=== PATIENT | female | born 2000 | race Caucasian/White ===

== ENCOUNTER 2021-06-18 17:33 | Observation (INO) | payer OTHER ==
[2021-06-18 18:03] LABS: #Eosinphils 0.2 10x3/uL (0.0-0.5); #Monocytes 0.5 10x3/uL (0.0-1.1); #Neutrophils 5.1 10x3/uL (1.5-8.4); %Basophils 0.3 % (0.0-2.0); %Eosinophils 2.3 % (0.0-6.0); %Lymphocytes 32.8 % (18.0-47.0); %Monocytes 6.2 % (0.0-10.0); %Neutrophils 58.2 % (40.0-75.0); Hemoglobin 13.4 g/dL (12.0-15.5); Mean Corpuscular HGB CONC 33.4 g/dL (32.0-36.0); Mean Corpuscular Hemoglobin 31.8 pg (27.0-33.0); Mean Corpuscular Volume 95.2 fl (81.6-98.3); Mean Platelet Volume 9.3 fl (7.4-10.4); Platelet Count 360 10x3/uL (150-450); RBC Distribution Width 13.2 % (11.5-14.5); Red Blood Cell (RBC) Count 4.21 10x6/uL (3.90-5.03); White Blood Cell (WBC) Count 8.7 10x3/uL (3.5-10.5)
[2021-06-18] MEDS ORDERED: Fentanyl 100 MCG/2 ML VIAL ONE (18:07)
[2021-06-18 18:19] LABS: ALT (SGPT) 28 U/L (8-55); AST (SGOT) 21 U/L (5-34); Albumin 4.2 g/dL (3.5-5.0); Alkaline Phosphatase 50 U/L (40-100); Anion Gap 13 mmol/L (10-20); BUN (Urea Nitrogen) 7 mg/dL (7.0-18.7); Bilirubin, Total 0.6 mg/dL (0.2-1.2); Calc. Creatinine Clearance 0 mL/min (70-130); Calcium 8.8 mg/dL (7.8-10.44); Carbon Dioxide 20 mmol/L (22-29); Chloride 109 mmol/L (98-107); Glucose 92 mg/dL (70-105); Potassium 3.7 mmol/L (3.5-5.1); Protein, Total 7.2 g/dL (6.0-8.3); Sodium 138 mmol/L (136-145)
[2021-06-18] MEDS ORDERED: Ondansetron PF 4 MG/2 ML Vial ONE (18:44)
[2021-06-18] MEDS ORDERED: cefTRIAXone\\ROCEPHIN 1 GM VIAL ONE (18:58)
[2021-06-18] MEDS ORDERED: diphenhydrAMINE 50 MG/ML VIAL ONE (18:58)
[2021-06-18] MEDS ORDERED: Ketorolac Tromethamine 30 MG/ML VIAL ONE (18:58)
[2021-06-18] MEDS ORDERED: Metoclopramide HCl 10 MG/2 ML VIAL ONE (18:58)
[2021-06-18 20:35] LABS: MONO NEGATIVE CONTROL ZONE White (Negative) (White); MONO POSITIVE CONTROL Pink Line (Positive) (PINK/RED); Mononucleosis NEGATIVE (NEGATIVE)
[2021-06-18] MEDS ORDERED: Zolpidem Tartrate 5 MG TAB PO PRN (22:13)
[2021-06-18] MEDS ORDERED: Senokot S 8.6-50 MG TAB PO PRN (22:13)
[2021-06-18] MEDS ORDERED: Calcium Carbonate 500 MG ChewTAB PO PRN (22:13)
[2021-06-18] MEDS ORDERED: Ondansetron PF 4 MG/2 ML Vial IVP PRN (22:13)
[2021-06-18] MEDS ORDERED: Vancomycin 1 GM in Premix Bag 1 BAG IVPB SCH (22:30)
[2021-06-18] MEDS ORDERED: Dexamethasone 10 MG/ML VIAL SLOW IVP SCH (22:30)
[2021-06-19] MEDS ORDERED: Dexamethasone 20 MG/5 ML VIAL SLOW IVP SCH (00:30)
[2021-06-19] MEDS: Lactated Ringer's 1,000 ML IV SCH ×3 (00:35→14:42)
[2021-06-19] MEDS: Vancomycin HCl 750 MG in Sodium Chloride 0.9% 250 ML 250 ML IVPB SCH ×3 (00:35→17:41)
[2021-06-19 03:22] LABS: Bilirubin Neg (Negative); Blood, Urine Negative (Negative); Clarity Clear (Clear); Glucose, Urine (Dipstick) Normal (Negative); Ketone, Urine 150 mg/dL (Negative); Leukocyte 100 (Negative); Nitrite Negative (Negative); Protein, Urine (Dipstick) 15 mg/dl (Neg-Trace); Urobilinogen Normal mg/dL (Less than 2)
[2021-06-19 03:33] LABS: RBC/HPF 0-3 HPF (0-3); Squamous Epithelial 0-3 HPF (0-3)
[2021-06-19 03:34] LABS: Bacteria/HPF Rare-Few HPF (None Seen)
[2021-06-19 08:13] LABS: Hemoglobin 12.8 g/dL (12.0-15.5); Mean Corpuscular HGB CONC 33.6 g/dL (32.0-36.0); Mean Corpuscular Hemoglobin 31.2 pg (27.0-33.0); Mean Corpuscular Volume 92.9 fl (81.6-98.3); Mean Platelet Volume 9.1 fl (7.4-10.4); Platelet Count 305 10x3/uL (150-450); RBC Distribution Width 13.2 % (11.5-14.5); White Blood Cell (WBC) Count 8.6 10x3/uL (3.5-10.5)
[2021-06-19 08:36] LABS: ALT (SGPT) 25 U/L (8-55); AST (SGOT) 19 U/L (5-34); Albumin 3.7 g/dL (3.5-5.0); Alkaline Phosphatase 46 U/L (40-100); Anion Gap 14 mmol/L (10-20); BUN (Urea Nitrogen) 7 mg/dL (7.0-18.7); Bilirubin, Total 0.6 mg/dL (0.2-1.2); Calc. Creatinine Clearance 159 mL/min (70-130); Calcium 8.6 mg/dL (7.8-10.44); Carbon Dioxide 17 mmol/L (22-29); Chloride 108 mmol/L (98-107); Globulin 2.7 g/dL (2.4-3.5); Glucose 105 mg/dL (70-105); Potassium 4.3 mmol/L (3.5-5.1); Protein, Total 6.4 g/dL (6.0-8.3); Sodium 135 mmol/L (136-145)
[2021-06-19 08:52] LABS: HIV (1/2) Antibody/Antigen Non-Reactive (NonReactive); HIV 1/2 INDEX 0.08 S/CO (<1.00)
[2021-06-19 08:55] LABS: MDiff Complete? YES
[2021-06-19 08:59] LABS: Lymphocytes 17 % (28-48); Monocytes 1 % (0-4); Neutrophil 82 % (31-61)
[2021-06-19 09:00] LABS: Platelet Morphology Comment Appears Adequate; RBC Morphology Normal
[2021-06-19] MEDS: Famotidine/PF 20 mg/2ml Vial SLOW IVP SCH ×2 (10:46→21:52)
[2021-06-19] MEDS ORDERED: Lidocaine 1% PF 5 ML VIAL ONE (12:14)
[2021-06-19] MEDS ORDERED: Sodium Bicarbonate 2.5 MEQ/5 ML VIAL ONE (12:14)
[2021-06-19 12:17] LABS: Pregnancy Test - Urine (BHCG) Negative (Negative); Pregu Control Background? CLEAR/WHITE (CLR/WHITE); Pregu Control Bar Appear? YES (CONTROL BAR)
[2021-06-19 14:33] LABS: CSF, Glucose 64 mg/dl (40-70); CSF, Protein 25 mg/dL (15-40)
[2021-06-19 14:37] LABS: Color Of CSF Supernatant COLORLESS (Colorless); Tube # 1; Unspun CSF Color COLORLESS (Colorless)
[2021-06-19] MEDS: cefTRIAXone\\ROCEPHIN 2 GM in Sodium Chloride 0.9% 100 ML IVPB SCH ×2 (14:41→21:53)
[2021-06-19] MEDS: Ketorolac Tromethamine 30 MG/ML VIAL IVP PRN ×2 (14:42→21:54)
[2021-06-19 15:08] LABS: CSF RBC Count - Manual 96 /cu.mm (None Seen); CSF Source CSF; CSF WBC/NonHematics Count-Man 3 /cu.mm (0-5); Clarity Clear (Clear); Tube # 2
[2021-06-20 01:01] LABS: Vancomycin, Trough 6.2 ug/mL
[2021-06-20] MEDS: Vancomycin HCl 750 MG in Sodium Chloride 0.9% 250 ML 250 ML IVPB SCH (01:01)
[2021-06-20] MEDS: Acetaminophen 325 MG TAB PO PRN ×2 (01:16→08:52)
[2021-06-20] MEDS: Lactated Ringer's 1,000 ML IV SCH ×2 (01:38→06:20)
[2021-06-20 02:00] VITALS: BMI 32.1
[2021-06-20] MEDS: Ketorolac Tromethamine 30 MG/ML VIAL IVP PRN (03:25)
[2021-06-20 04:15] LABS: #Neutrophils 5.9 10x3/uL (1.5-8.4); %Basophils 0.3 % (0.0-2.0); %Eosinophils 0.3 % (0.0-6.0); %Lymphocytes 30.2 % (18.0-47.0); %Monocytes 9.7 % (0.0-10.0); %Neutrophils 59.2 % (40.0-75.0); Hemoglobin 11.1 g/dL (12.0-15.5); Mean Corpuscular HGB CONC 33.1 g/dL (32.0-36.0); Mean Corpuscular Hemoglobin 31.5 pg (27.0-33.0); Mean Corpuscular Volume 95.2 fl (81.6-98.3); Mean Platelet Volume 9.8 fl (7.4-10.4); Platelet Count 286 10x3/uL (150-450); RBC Distribution Width 13.2 % (11.5-14.5); Red Blood Cell (RBC) Count 3.52 10x6/uL (3.90-5.03); White Blood Cell (WBC) Count 9.9 10x3/uL (3.5-10.5)
[2021-06-20 04:20] LABS: Anion Gap 11 mmol/L (10-20); BUN (Urea Nitrogen) 9 mg/dL (7.0-18.7); Calc. Creatinine Clearance 156 mL/min (70-130); Calcium 8.2 mg/dL (7.8-10.44); Carbon Dioxide 21 mmol/L (22-29); Chloride 109 mmol/L (98-107); Glucose 86 mg/dL (70-105); Potassium 3.9 mmol/L (3.5-5.1); Sodium 137 mmol/L (136-145)
[2021-06-20] MEDS ORDERED: FLU VACC QS2021-22(6MOS UP)/PF 60 MCG/0.5 ML SYRINGE IM ONE (09:00)
[2021-06-20] MEDS ORDERED: Vancomycin HCl 1 GM in Sodium Chloride 0.9% 250 ML 250 ML IVPB SCH (09:00)
[2021-06-20 11:30] VITALS: BP 98/57; TEMP 99.4
[2021-06-20] MEDS: Famotidine/PF 20 mg/2ml Vial SLOW IVP SCH (11:33)
== END 2021-06-20 11:30 | disposition home or self-care (01) ==
LOC: CSHERS 17:33 → CSHTELE 17:34
PROVIDERS: ADMIT Student in an Organized Health Care Education/Training Program; ATTEND Nurse Practitioner Family
DX: R29.1 Meningismus (principal); R51.9 Headache, unspecified; R50.9 Fever, unspecified; E87.2 Acidosis; Z90.49 Acquired absence of other specified parts of digestive tract; E73.9 Lactose intolerance, unspecified; K58.9 Irritable bowel syndrome, unspecified
CPT/HCPCS: 36415; 62270; 70450; 80048; 80053; 80202; 81001; 81025; 82945; 84157; 85025; 86308; 87070; 87081; 87086; 87205; 87389; 87430; 87529; 89051; 96365; 96375; 96376; G0378; J0696; J1100; J1200; J1885; J2405; J2765; J3010; J3370; J3490; J7050; J7120; S0028

== ENCOUNTER 2021-06-21 17:32 | Emergency (ER) | payer OTHER ==
[2021-06-21] MEDS ORDERED: diphenhydrAMINE 50 MG/ML VIAL ONE (19:49)
[2021-06-21] MEDS ORDERED: Ketorolac Tromethamine 30 MG/ML VIAL ONE (19:49)
[2021-06-21] MEDS ORDERED: Caffeine/Sodium Benzoate 0.5 GM in Sodium Chloride 0.9% 1,000 ML IVPB SCH (20:15)
== END 2021-06-21 22:50 | disposition home or self-care (01) ==
LOC: CSHERS 17:32
DX: T88.59XA Other complications of anesthesia, initial encounter (principal); G44.40 Drug-induced headache, not elsewhere classified, not intractable; K58.9 Irritable bowel syndrome, unspecified; M41.9 Scoliosis, unspecified
CPT/HCPCS: 96365; 96375; J0706; J1200; J1885; J7050